=== PATIENT | female | born 1990 | race Caucasian/White ===

== ENCOUNTER 2022-11-12 08:12 | Outpatient (OUT) | payer MEDICAID, SELFPAY ==
--- NOTE | 2022-11-12 | VEIN_ITS ---
[address] [address] Patient Name: AGUILA NIELSEN MRN: [id number] date: 1990 Sex: F Assigned Patient Location: Current Patient Location: Accession/Order Number: [id number] Exam Date: 11/12/2022 07:55 Report Date: 11/12/2022 09:19 At the request of: ANDREW TURNER Procedure: VC Endovenous Ablation 1VeinRT EXAMINATION: VC Endovenous Ablation 1VeinRT HISTORY: Pain due to varicose veins of bilateral legs I83.813 The risks and benefits of the procedure had been previously discussed, and were rediscussed at length. Informed written consent was obtained. Rajani Castellon RN and Perla Lim RDMS assisted. Time out procedure was performed. The right lower extremity was prepared and draped in the usual sterile fashion to allow knee flexion in the sterile field. Duplex ultrasound probe was draped in a sterile cover, sterile transmission gel was used. Venous mapping was performed with the areas of dilation and large tributaries marked. The total length was 61 cm from the entry 3 cm above the medial malleolus to 3 cm below the saphenofemoral junction. The diameter of the greater saphenous vein ranged from 15 mm. A 30 gauge needle and 1% buffered lidocaine was used to anesthetize the entry site. A 4 mm incision was made with a scalpel and the saphenous vein was entered percutaneously under direct ultrasound guidance with a micropuncture set, a single stick was successful in gaining access. A micro-guide wire was inserted and the needle removed. A micro-set including a dilator was inserted over the microwire and the needle and dilator were removed. A guide wire was inserted through the micro-set and guided through the saphenous vein to the saphenofemoral junction. The dilator was removed and an introducer sheath was inserted over the wire until the end of the sheath entered the saphenofemoral junction. The dilator and wire were removed and the 600 micron fiber was introduced and placed and positioned so that it extended beyond the sheath and was 3 cm distal to the saphenofemoral femoral junction. Final position of the fiber was determined by ultrasound guidance and duplex imaging. Tumescent anesthetic was delivered by ultrasound guidance. 400 cc of fluid was delivered along the entire course of the saphenous vein. The solution consisted of 1000 cc of normal saline with 40 mL of 1% lidocaine and 20 mL of sodium bicarbonate. A final positioning check was made. The energy source was turned on by means of the foot pedal and the fiber and sheath were withdrawn. The total number of Joules delivered was 2960. The laser was active for 370seconds under continuous pulse, average laser use of 8 J. Laser start time 8:47 AM, 11/12/2022. Laser stop time 8:53 AM, 11/12/2022. A duplex ultrasound revealed compressibility and flow at the saphenofemoral junction immediately after the procedure. Hemostasis at the access site was achieved. The skin incision of the saphenous vein was closed with a 4 x 4. A compression stocking was applied. Postop instructions were given. A follow up appointment was recommended and scheduled. The patient tolerated the procedure well. Electronically authenticated by: GARETH LINO Date: 11/12/2022 09:19
== END 2022-11-12 08:13 ==
LOC: VC 08:12
PROVIDERS: PCP Radiology Diagnostic Radiology; Visit Provider Radiology Diagnostic Radiology
DX: I83.813 Varicose veins of bilateral lower extremities with pain (principal)
CPT/HCPCS: 36478

== ENCOUNTER 2022-11-18 07:53 | Outpatient (OUT) | payer MEDICAID, SELFPAY ==
--- NOTE | 2022-11-18 08:00 | VEIN_ITS ---
Patient: AGUILA NIELSEN Exam Date: 11/18/2022 : 1990 Gender:F Ordering : DR ANDREW TURNER M.D. Admission #: [id number] Family : Order #: [id number] CLICK HERE TO VIEW EXAM RADIOLOGY REPORT PROCEDURE: VC FACILITY EST LMTD VEIN CENTER - OFFICE VISIT FOLLOW UP COMPARISON: None. PROGRESS NOTES: The patient reports improvement in right leg symptoms. There has been interval reduction in varicosities. The patient has followed our recommendations to walk 20-30 minutes once or twice per day since the procedure. Physical exam demonstrates areas of mild bruising and slight decrease in varicosities of the right leg. Persistent varicosities are identified along the legs bilaterally. Review of the ultrasound performed the same day demonstrates occlusive thrombus extending throughout the treated vein, see separate report, consistent with a successful ablation. No thrombus extending into or beyond the saphenofemoral junction. The patient expressed a desire to proceed with treatment of remaining incompetent veins. The patient was informed that treatment was a process and would require several procedures/sessions. IMPRESSION: 1. Successful ablation of the right great saphenous vein 2. Persistent incompetent superficial veins and bilateral lower extremity symptoms PLAN: Endovenous laser ablation of the left great saphenous vein be performed next. Nurse notes, history and physical were reviewed and confirmed, see attached forms. The nurse was present throughout the physical exam and consultation Dictated by: Claude Rodriguez M.D. on 11/18/2022 at 12:47 Approved by: Claude Rodriguez M.D. on 11/18/2022 at 12:49
--- NOTE | 2022-11-18 08:00 | VEIN_ITS ---
Patient: AGUILA NIELSEN Exam Date: 11/18/2022 : 1990 Gender:F Ordering : DR ANDREW TURNER M.D. Admission #: [id number] Family : Order #: [id number] CLICK HERE TO VIEW EXAM RADIOLOGY REPORT PROCEDURE: VC EXT VENOUS RT LMTD COMPARISON: None. INDICATIONS: Phlebitis of superficial veins of rt lower extremity I80. TECHNIQUE: Lower extremity cisneros scale and Duplex Doppler evaluation of the deep venous system from the inguinal ligament through the calf veins. FINDINGS: REGION: Right lower extremity. THROMBI: Negative for DVT. Heat induced thrombus visualized 1.7 cm from the SFJ. The heat induced thrombus extends from groin to distal calf. COMPRESSIBILITY: Non-compressible segments. FLOW: Areas of no flow. OTHER: CONCLUSION: 1. Successful post ablation occlusion right great saphenous vein. Dictated by: Claude Rodriguez M.D. on 11/18/2022 at 12:40 Approved by: Claude Rodriguez M.D. on 11/18/2022 at 12:47
== END 2022-11-18 07:54 ==
LOC: VC 07:54
PROVIDERS: PCP Radiology Diagnostic Radiology; Visit Provider Radiology Diagnostic Radiology
DX: I80.01 Phlebitis and thrombophlebitis of superficial vessels of right lower extremity (principal)
CPT/HCPCS: 93971; G0463

== ENCOUNTER 2022-11-25 07:46 | Outpatient (OUT) | payer MEDICAID, SELFPAY ==
--- NOTE | 2022-11-25 08:14 | VEIN_ITS ---
[address] [address] Patient Name: AGUILA NIELSEN MRN: [id number] date: 1990 Sex: F Assigned Patient Location: Current Patient Location: Accession/Order Number: [id number] Exam Date: 11/25/2022 07:50 Report Date: 11/25/2022 08:52 At the request of: ANDREW TURNER Procedure: VC Endovenous Ablation 1VeinLT EXAMINATION: VC Endovenous Ablation 1VeinLT HISTORY: Painful varicose veins I83.813 COMPARISON: No relevant comparison available. TECHNIQUE: The risks and benefits of the procedure had been previously discussed, and were rediscussed at length. Informed written consent was obtained. Kathleen Ayala and Kevon Diaz assisted. Time out procedure was performed. The left lower extremity was prepared and draped in the usual sterile fashion to allow knee flexion in the sterile field. Duplex ultrasound probe was draped in a sterile cover, sterile transmission gel was used. Venous mapping was performed with the areas of dilation and large tributaries marked. The total length was 62 cm from the entry 4 cm above the medial malleolus to 3 cm below the saphenofemoral junction. The diameter of the greater saphenous vein ranged from 5-14 mm. A 30 gauge needle and 1% buffered lidocaine was used to anesthetize the entry site. A 4 mm incision was made with a scalpel and the saphenous vein was entered percutaneously under direct ultrasound guidance with a micropuncture set, a single stick was successful in gaining access. A micro-guide wire was inserted and the needle removed. A micro-set including a dilator was inserted over the microwire and the needle and dilator were removed. A .018 guide wire was inserted through the micro-set and threaded through the saphenous vein to the saphenofemoral junction. The dilator was removed and an introducer sheath was inserted over the wire until the end of the sheath entered the saphenofemoral junction. The dilator and wire were removed and the 600 micron fiber was introduced and placed and positioned so that it extended beyond the sheath and was 3 cm peripheral to the saphenofemoral femoral junction. Final position of the fiber was determined by ultrasound guidance and duplex imaging. Tumescent anesthetic was delivered by ultrasound guidance. 400 cc of fluid was delivered along the entire course of the saphenous vein. The solution consisted of 1000 cc of normal saline with 40 mL of 1% lidocaine and 20 mL of sodium bicarbonate. A final positioning check was made. The energy source was turned on by means of the foot pedal and the fiber and sheath were withdrawn. The total number of Joules delivered was 3042. The laser was active for 380seconds under continuous pulse, average laser use of 8 J. Laser start time 8:39 am 11/25/22.. Laser stop time 8:45AM 11/25/22 . A duplex ultrasound revealed compressibility and flow at the saphenofemoral junction immediately after the procedure. Hemostasis at the access site was achieved. The skin incision of the saphenous vein was closed with a 4 x 4. A compression stocking was applied. Postop instructions were given. A follow up appointment was recommended and scheduled. The patient tolerated the procedure well and was discharged in good condition . IMPRESSION: Technically successful endovenous laser ablation of the left great saphenous vein Electronically authenticated by: ANDREW TURNER Date: 11/25/2022 08:52
[2022-11-25] MEDS: 0.9 % SODIUM CHLORIDE 500 ML, LIDOCAINE HCL 20 ML, SODIUM BICARBONATE 10 MEQ INJ (08:21)
[2022-11-25] MEDS: LIDOCAINE HCL 10 ML, SODIUM BICARBONATE 1 MEQ INJ (08:26)
== END 2022-11-25 07:47 | disposition home or self-care (01) ==
LOC: VC 07:46
PROVIDERS: PCP Radiology Diagnostic Radiology; Visit Provider Radiology Diagnostic Radiology
DX: I83.813 Varicose veins of bilateral lower extremities with pain (principal)
CPT/HCPCS: 36478

== ENCOUNTER 2022-12-03 08:10 | Outpatient (OUT) | payer MEDICAID, SELFPAY ==
--- NOTE | 2022-12-03 | VEIN_ITS ---
Patient: AGUILA NIELSEN Exam Date: 12/03/2022 : 1990 Gender:F Ordering : DR ANDREW TURNER M.D. Admission #: [id number] Family : Order #: [id number] CLICK HERE TO VIEW EXAM RADIOLOGY REPORT PROCEDURE: FACILITY EST LMTD VEIN CENTER - OFFICE VISIT FOLLOW UP COMPARISON: [facility] EST LMTD, 11/18/2022. PROGRESS NOTES: The patient reports slight improvement in leg symptoms. There has been interval reduction in varicosities. The patient has followed our recommendations to walk 20-30 minutes once or twice per day since the procedure. Physical exam demonstrates slight decrease in varicosities of the left leg. Persistent varicosities are identified along the legs bilaterally. Review of the ultrasound performed the same day demonstrates occlusive thrombus extending throughout the treated vein, see separate report, consistent with a successful ablation. No thrombus extending into or beyond the saphenofemoral junction. The patient expressed a desire to proceed with treatment of remaining incompetent varicosities. The patient was informed that treatment was a process and would require several procedures/sessions. IMPRESSION: 1. Successful ablation of the left saphenous vein 2. Persistent incompetent varicose veins and bilateral lower extremity symptoms PLAN: Endovenous laser ablation of right small saphenous vein. Nurse notes, history and physical were reviewed and confirmed, see attached forms. The nurse was present throughout the physical exam and consultation Dictated by: Claude Rodriguez M.D. on 12/03/2022 at 09:10 Approved by: Claude Rodriguez M.D. on 12/03/2022 at 09:14
--- NOTE | 2022-12-03 | VEIN_ITS ---
Patient: AGUILA NIELSEN Exam Date: 12/03/2022 : 1990 Gender:F Ordering : DR ANDREW TURNER M.D. Admission #: [id number] Family : Order #: [id number] CLICK HERE TO VIEW EXAM RADIOLOGY REPORT PROCEDURE: VC EXT VENOUS LT LIMITED COMPARISON: None. INDICATIONS: Phlebitis of superficial vein of the lt lower extremity I80.02 TECHNIQUE: Lower extremity cisneros scale and Duplex Doppler evaluation of the deep venous system from the inguinal ligament through the calf veins. FINDINGS: REGION: Left lower extremity. THROMBI: Negative for DVT. Heat induced thrombus in left GSV 1.3 cm from SFJ and extends to distal lower leg. Associated turn operator in distal lower leg thrombosed 8.3 mm from PTV. COMPRESSIBILITY: Non-compressible segments. FLOW: Areas of no flow. OTHER: Multiple large varicosities remain. CONCLUSION: 1. Successful post ablation occlusion of left great saphenous vein. Dictated by: Claude Rodriguez M.D. on 12/03/2022 at 09:08 Approved by: Claude Rodriguez M.D. on 12/03/2022 at 09:10
== END 2022-12-03 08:11 | disposition home or self-care (01) ==
LOC: VC 08:10
PROVIDERS: PCP Radiology Diagnostic Radiology; Visit Provider Radiology Diagnostic Radiology
DX: I80.02 Phlebitis and thrombophlebitis of superficial vessels of left lower extremity (principal); I83.813 Varicose veins of bilateral lower extremities with pain
CPT/HCPCS: 93971; G0463

== ENCOUNTER 2022-12-16 09:51 | Outpatient (OUT) | payer MEDICAID, SELFPAY ==
--- NOTE | 2022-12-16 09:51 | VEIN_ITS ---
[address] [address] Patient Name: AGUILA NIELSEN MRN: [id number] date: 1990 Sex: F Assigned Patient Location: Current Patient Location: Accession/Order Number: [id number] Exam Date: 12/16/2022 09:55 Report Date: 12/16/2022 11:44 At the request of: ANDREW TURNER Procedure: VC Endovenous Ablation 1VeinRT EXAMINATION: VC Endovenous Ablation 1VeinRT HISTORY: I83.813 Pain due to varicose veins of bilateral legs COMPARISON: No relevant comparison available. TECHNIQUE: The risks and benefits of the procedure had been previously discussed, and were rediscussed at length. Informed written consent was obtained. Kathleen Ayala and Kevon Diaz assisted. Time out procedure was performed. The right lower extremity was prepared and draped in the usual sterile fashion with the patient in prone position. Duplex ultrasound probe was draped in a sterile cover, sterile transmission gel was used. Venous mapping was performed with the areas of dilation and large tributaries marked. The total length was 23 cm from the entry mid to distal calf 2 where the vein begins to dilate deep into the muscle fascia, this was a thigh extension. The diameter of the small saphenous vein ranged from 4-7 mm. A 30 gauge needle and 1% buffered lidocaine was used to anesthetize the entry site. A 4 mm incision was made with a scalpel and the saphenous vein was entered percutaneously under direct ultrasound guidance with a micropuncture set, a single stick was successful in gaining access. A micro-guide wire was inserted and the needle removed. A micro-set including a dilator was inserted over the microwire and the needle and dilator were removed. A 0.018 guide wire was inserted through the micro-set and threaded through the saphenous vein to the saphenofemoral junction. The dilator was removed and an introducer sheath was inserted over the wire until the end of the sheath entered the saphenofemoral junction. The dilator and wire were removed and the 600 micron fiber was introduced and placed and positioned so that it extended beyond the sheath and was 3 cm peripheral to the saphenofemoral femoral junction. Final position of the fiber was determined by ultrasound guidance and duplex imaging. Rashicent anesthetic was delivered by ultrasound guidance. 200 cc of fluid was delivered along the entire course of the saphenous vein. The solution consisted of 1000 cc of normal saline with 40 mL of 1% lidocaine and 20 mL of sodium bicarbonate. A final positioning check was made. The energy source was turned on by means of the foot pedal and the fiber and sheath were withdrawn. The total number of Joules delivered was 1081. The laser was active for 135 seconds under continuous pulse, average laser use of 8 J. Laser start time 10:32 AM 12/16/2022 . Laser stop time 10:34 AM 12/16/2022 . A duplex ultrasound revealed compressibility and flow at the saphenofemoral junction immediately after the procedure. Hemostasis at the access site was achieved. The skin incision of the saphenous vein was closed with a 4 x 4. A compression stocking was applied. Postop instructions were given. A follow up appointment was recommended and scheduled. The patient tolerated the procedure well and was discharged in good condition . VEIN/VC Endovenous Ablation 1VeinRT IMPRESSION: Technically successful endovenous laser ablation right small saphenous vein Electronically authenticated by: ANDREW TURNER Date: 12/16/2022 11:44
[2022-12-16] MEDS: 0.9 % SODIUM CHLORIDE 500 ML, LIDOCAINE HCL 20 ML, SODIUM BICARBONATE 10 MEQ INJ (10:13)
[2022-12-16] MEDS: LIDOCAINE HCL 10 ML, SODIUM BICARBONATE 1 MEQ INJ (14:43)
== END 2022-12-16 09:52 | disposition home or self-care (01) ==
LOC: VC 09:51
PROVIDERS: PCP Radiology Diagnostic Radiology; Visit Provider Radiology Diagnostic Radiology
DX: I83.813 Varicose veins of bilateral lower extremities with pain (principal)
CPT/HCPCS: 36478

== ENCOUNTER 2022-12-29 09:50 | Outpatient (OUT) | payer MEDICAID, SELFPAY ==
--- NOTE | 2022-12-29 09:51 | VEIN_ITS ---
Patient: AGUILA NIELSEN Exam Date: 12/29/2022 : 1990 Gender:F Ordering : DR ANDREW TURNER M.D. Admission #: [id number] Family : Order #: [id number] CLICK HERE TO VIEW EXAM RADIOLOGY REPORT PROCEDURE: [facility] EST L[facility] VEIN CENTER - OFFICE VISIT FOLLOW UP COMPARISON: [facility], 12/03/2022. PROGRESS NOTES: The patient reports improvement in leg symptoms. There has been interval reduction in varicosities. The patient has followed our recommendations to walk 20-30 minutes once or twice per day since the procedure. Physical exam demonstrates decrease in varicosities of the leg. Persistent varicosities are identified along the legs bilaterally. Review of the ultrasound performed the same day demonstrates occlusive thrombus extending throughout the treated vein(s), see separate report, consistent with a successful ablation. No thrombus extending into or beyond the saphenofemoral junction. The patient expressed a desire to proceed with treatment of remaining incompetent varicosities. The patient was informed that treatment was a process and would require several procedures/sessions. VEIN/[facility] EST LMTD IMPRESSION: 1. Successful ablation of the right small saphenous vein(s). 2. Persistent incompetent varicose veins and bilateral lower extremity symptoms. PLAN: Endovenous laser ablation of the left small saphenous vein. Nurse notes, history and physical were reviewed and confirmed, see attached forms. The nurse was present throughout the physical exam and consultation Dictated by: Claude Rodriguez M.D. on 12/29/2022 at 13:25 Approved by: Claude Rodriguez M.D. on 12/29/2022 at 13:28
--- NOTE | 2022-12-29 09:51 | VEIN_ITS ---
Patient: AGUILA NIELSEN Exam Date: 12/29/2022 : 1990 Gender:F Ordering : DR ANDREW TURNER M.D. Admission #: [id number] Family : Order #: [id number] CLICK HERE TO VIEW EXAM RADIOLOGY REPORT PROCEDURE: VC EXT VENOUS RT LMTD COMPARISON: VC EXT VENOUS RT LMTD, 11/18/2022. INDICATIONS: I80.01 Phlebitis of superficial veins of rt lower extremity TECHNIQUE: Lower extremity cisneros scale and Duplex Doppler evaluation of the deep venous system from the inguinal ligament through the calf veins. FINDINGS: REGION: Right lower extremity. THROMBI: Negative for DVT. Heat induced thrombus in right SSV from distal thigh extention to distal lower leg. COMPRESSIBILITY: Non-compressible segments. FLOW: Areas of no flow. OTHER: Varicose veins remain. CONCLUSION: 1. Successful post ablation occlusion of right small saphenous vein. Dictated by: Claude Rodriguez M.D. on 12/29/2022 at 13:23 Approved by: Claude Rodriguez M.D. on 12/29/2022 at 13:25
== END 2022-12-29 09:51 | disposition home or self-care (01) ==
LOC: VC 09:50
PROVIDERS: PCP Radiology Diagnostic Radiology; Visit Provider Radiology Diagnostic Radiology
DX: I80.01 Phlebitis and thrombophlebitis of superficial vessels of right lower extremity (principal)
CPT/HCPCS: 93971; G0463

== ENCOUNTER 2023-01-12 09:40 | Outpatient (OUT) | payer MEDICAID, SELFPAY ==
--- NOTE | 2023-01-12 | VEIN_ITS ---
[address] [address] Patient Name: AGUILA NIELSEN MRN: [id number] date: 1990 Sex: F Assigned Patient Location: Current Patient Location: Accession/Order Number: [id number] Exam Date: 01/12/2023 09:50 Report Date: 01/12/2023 11:03 At the request of: ANDREW TURNER Procedure: VC Endovenous Ablation 1VeinLT EXAMINATION: VC Endovenous Ablation 1VeinLT HISTORY: Pain due to varicose veins of bilateral legs I83.813 The risks and benefits of the procedure had been previously discussed, and were rediscussed at length. Informed written consent was obtained. Kevon Diaz RN and Perla Lim RDMS assisted. Time out procedure was performed. The left lower extremity was prepared and draped in the usual sterile fashion to allow knee flexion in the sterile field. Duplex ultrasound probe was draped in a sterile cover, sterile transmission gel was used. Venous mapping was performed with the areas of dilation and large tributaries marked. The total length was 29 cm from the entry 3 cm above the ankle to 3 cm below the saphenofemoral popliteal junction. The diameter of the small saphenous vein ranged from 5.1 mm. A 30 gauge needle and 1% buffered lidocaine was used to anesthetize the entry site. A 4 mm incision was made with a scalpel and the saphenous vein was entered percutaneously under direct ultrasound guidance with a micropuncture set, a single stick was successful in gaining access. A micro-guide wire was inserted and the needle removed. A micro-set including a dilator was inserted over the microwire and the needle and dilator were removed. A guide wire was inserted through the micro-set and guided through the saphenous vein to the saphenofemoral junction. The dilator was removed and an introducer sheath was inserted over the wire until the end of the sheath entered the saphenofemoral junction. The dilator and wire were removed and the 600 micron fiber was introduced and placed and positioned so that it extended beyond the sheath and was 3 cm distal to the saphenofemoral or saphenopopliteal junction. Final position of the fiber was determined by ultrasound guidance and duplex imaging. Tumescent anesthetic was delivered by ultrasound guidance. 150 cc of fluid was delivered along the entire course of the saphenous vein. The solution consisted of 1000 cc of normal saline with 40 mL of 1% lidocaine and 20 mL of sodium bicarbonate. A final positioning check was made. The energy source was turned on by means of the foot pedal and the fiber and sheath were withdrawn. The total number of Joules delivered was 1583. The laser was active for 198 seconds under continuous pulse, average laser use of 8 J. Laser start time 10:24 AM, 01/12/2023. Laser stop time 10:27 AM, 01/12/2023. A duplex ultrasound revealed compressibility and flow at the saphenofemoral junction immediately after the procedure. Hemostasis at the access site was achieved. The skin incision of the saphenous vein was closed with a 4 x 4. A compression stocking was applied. Postop instructions were given. A follow up appointment was recommended and scheduled. The patient tolerated the procedure well. Electronically authenticated by: GARETH LINO Date: 01/12/2023 11:03
[2023-01-12] MEDS: 0.9 % SODIUM CHLORIDE 500 ML, LIDOCAINE HCL 20 ML, SODIUM BICARBONATE 10 MEQ INJ (10:08)
== END 2023-01-12 09:41 | disposition home or self-care (01) ==
LOC: VC 09:41
PROVIDERS: PCP Radiology Diagnostic Radiology; Visit Provider Radiology Diagnostic Radiology
DX: I83.813 Varicose veins of bilateral lower extremities with pain (principal)
CPT/HCPCS: 36478

== ENCOUNTER 2023-01-16 09:46 | Outpatient (OUT) | payer MEDICAID, SELFPAY ==
--- NOTE | 2023-01-16 09:48 | VEIN_ITS ---
Patient: AGUILA NIELSEN Exam Date: 01/16/2023 : 1990 Gender:F Ordering : DR ARTIE LOCK M.D. Admission #: [id number] Family : Order #: [id number] CLICK HERE TO VIEW EXAM RADIOLOGY REPORT PROCEDURE: FACILITY EST LMTD VEIN CENTER - OFFICE VISIT FOLLOW UP COMPARISON: [facility] EST LMTD, 12/29/2022. [facility] EST LMTD, 12/03/2022. PROGRESS NOTES: The patient reports the no significant problems following intravenous laser ablation of the left small saphenous vein. The patient did not require oral analgesics for the patient has worn her compression stockings. The patient has followed our recommendations to walk 20-30 minutes once or twice per day since the procedure. Physical exam demonstrates no bruising. No erythema or warmth. No evidence of cellulitis, thrombophlebitis or active ulceration Review of the ultrasound performed the same day demonstrates occlusive thrombus extending throughout the treated small saphenous vein which was a thigh extension. No deep vein thrombus. The patient expressed a desire to proceed with treatment of incompetent varicose veins with micro foam chemical ablation. VEIN/[facility] EST LMTD IMPRESSION: 1. Successful ablation of the left small saphenous vein 2. Persistent bilateral incompetent varicose veins PLAN: Micro foam chemical ablation of the left leg Nurse notes, history and physical were reviewed and confirmed, see attached forms. The nurse was present throughout the physical exam and consultation Dictated by: Artie Lock MD on 01/16/2023 at 14:04 Approved by: Artie Lock MD on 01/16/2023 at 14:07
--- NOTE | 2023-01-16 09:49 | VEIN_ITS ---
Patient: AGUILA NIELSEN Exam Date: 01/16/2023 : 1990 Gender:F Ordering : DR ARTIE LOCK M.D. Admission #: [id number] Family : Order #: [id number] CLICK HERE TO VIEW EXAM RADIOLOGY REPORT PROCEDURE: VC EXT VENOUS LT LIMITED COMPARISON: VC EXT VENOUS LT LIMITED, 12/03/2022. INDICATIONS: I83.813 Pain due to varicose veins of bilateral leg veins TECHNIQUE: Lower extremity cisneros scale and Duplex Doppler evaluation of the deep venous system from the inguinal ligament through the calf veins. FINDINGS: REGION: Left lower extremity. THROMBI: Negative for DVT. Heat induced thrombus visualized arising at distal thigh and extending through distal calf. COMPRESSIBILITY: Non-compressible segments. FLOW: Absent flow corresponding to thrombus CONCLUSION: Post ablation occlusion of the left small saphenous vein with no deep vein thrombus Dictated by: Artie Lock MD on 01/16/2023 at 10:22 Approved by: Artie Lock MD on 01/16/2023 at 10:23
== END 2023-01-16 09:47 | disposition home or self-care (01) ==
LOC: VC 09:46
PROVIDERS: PCP Radiology Diagnostic Radiology; Visit Provider Radiology Diagnostic Radiology
DX: I80.02 Phlebitis and thrombophlebitis of superficial vessels of left lower extremity (principal)
CPT/HCPCS: 93971; G0463

== ENCOUNTER 2023-01-27 09:42 | Outpatient (OUT) | payer MEDICAID, SELFPAY ==
--- NOTE | 2023-01-27 09:45 | VEIN_ITS ---
[address] [address] Patient Name: AGUILA NIELSEN MRN: [id number] date: 1990 Sex: F Assigned Patient Location: Current Patient Location: Accession/Order Number: [id number] Exam Date: 01/27/2023 09:45 Report Date: 01/27/2023 11:52 At the request of: ANDREW TURNER Procedure: VC INJ Foam Sclerosant WUS METAL BUFFER PROCEDURE: VC INJ Foam Sclerosant WUS METAL BUFFER HISTORY: Pain due to varicose veins of bilateral legs I83.813 Pre-operative Diagnosis: CEAP class C3 venous insufficiency with pain, tenderness, edema and incompetent branch saphenous vein(s), chronic venous insufficiency right leg secondary to venous incompetence Post-operative Diagnosis: CEAP class C3 venous insufficiency with pain, tenderness, edema and incompetent branch saphenous vein(s), chronic venous insufficiency right leg secondary to venous incompetence Procedure Performed: 1. Ultrasound-guided microfoam chemical ablation with Varithenaregistered 2. Intraoperative ultrasound guidance Physician: Claude Rodriguez M.D. Anesthesia: None Indications for Procedure: 32 year old female. Symptoms including lower extremity swelling, dilated bulging veins, cramping for many years despite conservative medical therapy including medical compression stockings, exercise and analgesics. Prior procedures include endovenous laser ablation. Multiple incompetent varicosities of the right leg. Duplex scan showed reflux and enlarged diameters up to 5 mm. The patient underwent informed consent including management options where the complications of infection, bleeding, pain, and skin injury were discussed. Particular attention was spent discussing thrombus extension and deep vein thrombosis as well as the possibility of pulmonary embolus and treatment with oral or injectable blood thinners. Procedure: The patient walked to the procedure room. All applicable staff donned appropriate apparel. A procedure timeout was performed to confirm correct patient, correct extremity, correct procedure, and correct room set-up including presence of all applicable supplies, devices, and drugs. A duplex ultrasound, performed by myself confirmed the location and incompetence of branch saphenous varicosities and their course was marked on the skin together with the dilated tributaries. The extent of treatment of the vein and the associated varicosities was determined through ultrasound mapping. The skin was prepped and then punctured with a butterfly needle and advanced under ultrasound guidance. The Varithenaregistered canister was activated and the canister was primed and purged as required in the instructions for use. Varithenaregistered was drawn into a sterile syringe. Varithenaregistered was slowly administered at 0.5-1.0 cc/second with close observation by ultrasound of its course in the vessels. Total volume utilized was: 15 mL (5 mL into a 4 mm varicosity of the distal anterior lower leg; 5 mL into a 5 mm varicosity of the mid medial posterior lower leg; 5 mL into a 5 mm varicosity of the mid lateral lower leg). Following administration of Varithenaregistered the leg was elevated and the patient was asked to repeatedly dorsiflex the ankle to limit flow of Varithenaregistered into perforating veins. Once appropriate spasm had been confirmed in the treated veins, the vascular catheter was removed from the leg and light pressure was applied over the puncture site for hemostasis. The common femoral and deep superficial veins were then evaluated for flow and compressibility prior to dressing placement. The lower extremity was kept elevated at 45 degrees above the horizontal and cording material was applied over the saphenous segments and tributaries to allow for eccentric compression over the target vessels including the targeted saphenous vein(s). A multilayer dressing was applied consisting of foam pads, coban and thigh-high 20-30 mm Hg compression elastic support hose were placed on the patient. The leg was lowered only after compression had been applied and the patient was immediately ambulatory. The patient ambulated 10 minutes under supervision and was without apparent concerns at time of release. Post-care instructions include advising patient to keep post-treatment bandages in place and dry for 48 hours, avoid extended periods of inactivity, avoid heavy exercise for one week, wear compression stockings on the treated leg continuously for two weeks, to walk daily for 10 minutes over the next month. The patient was instructed to take an anti-inflammatory medicine as needed and to follow up for color duplex scan of the Saphenous veins, the treated branch saphenous varicosities, the adjacent deep veins, and additional treatment within 7 days. PERSONNEL: Kevon Diaz RN Electronically authenticated by: CLAUDE RODRIGUEZ Date: 01/27/2023 11:52
== END 2023-01-27 09:43 | disposition home or self-care (01) ==
LOC: VC 09:43
PROVIDERS: PCP Radiology Diagnostic Radiology; Visit Provider Radiology Diagnostic Radiology
DX: I83.813 Varicose veins of bilateral lower extremities with pain (principal)
CPT/HCPCS: 36466

== ENCOUNTER 2023-02-03 10:54 | Outpatient (OUT) | payer MEDICAID, SELFPAY ==
--- NOTE | 2023-02-03 | VEIN_ITS ---
Patient: AGUILA NIELSEN Exam Date: 02/03/2023 : 1990 Gender:F Ordering : DR ARTIE LOCK M.D. Admission #: [id number] Family : Order #: [id number] CLICK HERE TO VIEW EXAM RADIOLOGY REPORT PROCEDURE: VC EXT VENOUS RT LMTD COMPARISON: VC EXT VENOUS RT LMTD, 12/29/2022. VC EXT VENOUS RT LMTD, 11/18/2022. INDICATIONS: Phlebitis of superficial veins of rt lower extremity I80.01 TECHNIQUE: Lower extremity cisneros scale and Duplex Doppler evaluation of the deep venous system from the inguinal ligament through the calf veins. FINDINGS: REGION: Right lower extremity. THROMBI: Negative for DVT. Varithena induced thrombus visualized at prox/lat calf, dist/med thigh, and mid/med thigh. COMPRESSIBILITY: Non-compressible segments corresponding to thrombus. FLOW: Absent flow corresponding to thrombus OTHER: Multiple varicose veins remain CONCLUSION: Post ablation occlusion of treated right leg varicose veins with residual varicose veins measuring up to 4.5 mm Dictated by: Artie Lock MD on 02/03/2023 at 11:25 Approved by: Artie Lock MD on 02/03/2023 at 11:26
--- NOTE | 2023-02-03 | VEIN_ITS ---
Patient: AGUILA NIELSEN Exam Date: 02/03/2023 : 1990 Gender:F Ordering : DR ARTIE LOCK M.D. Admission #: [id number] Family : Order #: [id number] CLICK HERE TO VIEW EXAM RADIOLOGY REPORT PROCEDURE: FACILITY EST LMTD VEIN CENTER - OFFICE VISIT FOLLOW UP COMPARISON: FACILITY EST LMTD, 01/16/2023. FACILITY EST LMTD, 12/29/2022. PROGRESS NOTES: The patient no significant problems following micro foam chemical ablation of the right leg. The patient has worn her compression stocking. The patient did not require oral analgesics. There has been interval reduction in varicosities. The patient has followed our recommendations to walk 20-30 minutes once or twice per day since the procedure. Physical exam demonstrates a 10 cm bruise in the right lateral thigh related to the patient being kicked by 1 of her show horses. Multiple thrombosed varicose veins are observed with mild hemosiderin staining. The patient was cautioned to avoid some by using a mechanical sunblock or clothing to avoid permanent hemosiderin staining. Multiple residual incompetent patent varicose veins are observed most significant along the right anterior thigh knee and lower leg. Numerous patent left leg varicose veins are observed. Review of the ultrasound performed the same day demonstrates occlusive thrombus extending throughout the treated right leg varicose veins with residual incompetent varicose veins measuring up to 4.5 mm in diameter. The patient expressed a desire to proceed with treatment of incompetent left leg varicose veins. VEIN/ Facility EST LMTD IMPRESSION: 1. Successful micro foam chemical ablation of the right leg varicose veins. 2. Persistent bilateral incompetent leg varicose vein. PLAN: Micro foam chemical ablation left leg Nurse notes, history and physical were reviewed and confirmed, see attached forms. The nurse was present throughout the physical exam and consultation Dictated by: Artie Lock MD on 02/03/2023 at 11:57 Approved by: Artie Lock MD on 02/03/2023 at 13:00
== END 2023-02-03 10:55 | disposition home or self-care (01) ==
LOC: VC 10:54
PROVIDERS: PCP Radiology Diagnostic Radiology; Visit Provider Radiology Diagnostic Radiology
DX: I80.01 Phlebitis and thrombophlebitis of superficial vessels of right lower extremity (principal)
CPT/HCPCS: 93971; G0463

== ENCOUNTER 2023-02-17 13:49 | Outpatient (OUT) | payer MEDICAID, SELFPAY ==
--- NOTE | 2023-02-17 | VEIN_ITS ---
The [address] [address] Patient Name: AGUILA NIELSEN MRN: [id number] date: 1990 Sex: F Assigned Patient Location: Current Patient Location: Accession/Order Number: [id number] Exam Date: 02/17/2023 14:25 Report Date: 02/17/2023 15:40 At the request of: ANDREW TURNER Procedure: VC INJ Foam Sclerosant WUS VACUUM TECHNICIAN PROCEDURE: VC INJ Foam Sclerosant WUS VACUUM TECHNICIAN HISTORY: Pain due to varicose veins of bilateral legs I83.813 Pre-operative Diagnosis: CEAP class C3 venous insufficiency with pain, tenderness, edema and incompetent branch saphenous vein(s), chronic venous insufficiency left leg secondary to venous incompetence Post-operative Diagnosis: CEAP class C3 venous insufficiency with pain, tenderness, edema and incompetent branch saphenous vein(s), chronic venous insufficiency left leg secondary to venous incompetence Procedure Performed: 1. Ultrasound-guided microfoam chemical ablation with Varithenaregistered 2. Intraoperative ultrasound guidance Physician: Claude Rodriguez M.D. Anesthesia: None Indications for Procedure: 32 year old female. Symptoms including bilateral lower extremity bulging dilated discoid veins, leg heaviness, throbbing, itching for many years despite conservative medical therapy including medical compression stockings, exercise and analgesics. Prior procedures include endovenous laser ablation and microfoam chemical ablation. Multiple incompetent varicosities of the left leg. Duplex scan showed reflux and enlarged diameters up to 6 mm. The patient underwent informed consent including management options where the complications of infection, bleeding, pain, and skin injury were discussed. Particular attention was spent discussing thrombus extension and deep vein thrombosis as well as the possibility of pulmonary embolus and treatment with oral or injectable blood thinners. Procedure: The patient walked to the procedure room. All applicable staff donned appropriate apparel. A procedure timeout was performed to confirm correct patient, correct extremity, correct procedure, and correct room set-up including presence of all applicable supplies, devices, and drugs. A duplex ultrasound, performed by myself confirmed the location and incompetence of branch saphenous varicosities and their course was marked on the skin together with the dilated tributaries. The extent of treatment of the vein and the associated varicosities was determined through ultrasound mapping. The skin was prepped and then punctured with a butterfly needle and advanced under ultrasound guidance. The Varithenaregistered canister was activated and the canister was primed and purged as required in the instructions for use. Varithenaregistered was drawn into a sterile syringe. Varithenaregistered was slowly administered at 0.5-1.0 cc/second with close observation by ultrasound of its course in the vessels. Total volume utilized was: 15 mL (7 mL intravenous 5 mm varicosity of the distal anterior left lower leg; 8 mL into a 6 mm varicosity of the proximal medial lower leg). Following administration of Varithenaregistered the leg was elevated and the patient was asked to repeatedly dorsiflex the ankle to limit flow of Varithenaregistered into perforating veins. Once appropriate spasm had been confirmed in the treated veins, the vascular catheter was removed from the leg and light pressure was applied over the puncture site for hemostasis. The common femoral and deep superficial veins were then evaluated for flow and compressibility prior to dressing placement. The lower extremity was kept elevated at 45 degrees above the horizontal and cording material was applied over the saphenous segments and tributaries to allow for eccentric compression over the target vessels including the targeted saphenous vein(s). A multilayer dressing was applied consisting of foam pads, coban and thigh-high 20-30 mm Hg compression elastic support hose were placed on the patient. The leg was lowered only after compression had been applied and the patient was immediately ambulatory. The patient ambulated 10 minutes under supervision and was without apparent concerns at time of release. Post-care instructions include advising patient to keep post-treatment bandages in place and dry for 48 hours, avoid extended periods of inactivity, avoid heavy exercise for one week, wear compression stockings on the treated leg continuously for two weeks, to walk daily for 10 minutes over the next month. The patient was instructed to take an anti-inflammatory medicine as needed and to follow up for color duplex scan of the Saphenous veins, the treated branch saphenous varicosities, the adjacent deep veins, and additional treatment within 7 days. PERSONNEL: Kevon Diaz RN Electronically authenticated by: CLAUDE RODRIGUEZ Date: 02/17/2023 15:40
== END 2023-02-17 13:50 | disposition home or self-care (01) ==
LOC: VC 13:49
PROVIDERS: PCP Radiology Diagnostic Radiology; Visit Provider Radiology Diagnostic Radiology
DX: I83.813 Varicose veins of bilateral lower extremities with pain (principal)
CPT/HCPCS: 36466

== ENCOUNTER 2023-02-24 07:51 | Outpatient (OUT) | payer MEDICAID, SELFPAY ==
--- NOTE | 2023-02-24 | VEIN_ITS ---
Patient: AGUILA NIELSEN Exam Date: 02/24/2023 : 1990 Gender:F Ordering : DR ARTIE LOCK M.D. Admission #: [id number] Family : Order #: [id number] CLICK HERE TO VIEW EXAM RADIOLOGY REPORT PROCEDURE: VC EXT VENOUS LT LIMITED COMPARISON: VC EXT VENOUS LT LIMITED, 01/16/2023. VC EXT VENOUS LT LIMITED, 12/03/2022. INDICATIONS: Phlebitis of superficial veins of lt lower extremity I80.02 TECHNIQUE: Lower extremity cisneros scale and Duplex Doppler evaluation of the deep venous system from the inguinal ligament through the calf veins. FINDINGS: REGION: Left lower extremity. THROMBI: Negative for DVT. Varithena induced thrombus visualized at prox/med calf and distal/med calf. COMPRESSIBILITY: Non-compressible segments. FLOW: Absent flow corresponding to thrombus OTHER: Multiple varicose veins remain. Largest measures 5.9mm with 1.6s reflux. CONCLUSION: Post ablation occlusion of treated left leg varicose veins. Residual incompetent varicose veins measuring 5.9 mm remain Dictated by: Artie Lock MD on 02/24/2023 at 08:13 Approved by: Artie Lock MD on 02/24/2023 at 08:13
--- NOTE | 2023-02-24 | VEIN_ITS ---
Patient: AGUILA NIELSEN Exam Date: 02/24/2023 : 1990 Gender:F Ordering : DR ARTIE LOCK M.D. Admission #: [id number] Family : Order #: [id number] CLICK HERE TO VIEW EXAM RADIOLOGY REPORT PROCEDURE: FACILITY EST LMTD VEIN CENTER - OFFICE VISIT FOLLOW UP COMPARISON: FACILITY EST LMTD, 02/03/2023. FACILITY EST LMTD, 01/16/2023. PROGRESS NOTES: The patient reports improvement in initial presenting symptoms. The patient had no difficulty following micro foam chemical ablation of the left leg. There has been interval reduction in varicosities. The patient has worn her compression stockings. The patient has followed our recommendations to walk 20-30 minutes once or twice per day since the procedure. Physical exam demonstrates decrease in varicosities of the leg. Multiple bilateral patent varicose veins are observed. Multiple thrombosed varicose veins can be palpated. Review of the ultrasound performed the same day demonstrates occlusive thrombus extending throughout the treated left leg incompetent varicose veins. Residual incompetent varicose veins measuring up to 5.9 mm are observed. The patient expressed a desire to proceed with treatment of right leg incompetent varicose veins. VEIN/ Facility EST LMTD IMPRESSION: 1. Successful ablation of left leg incompetent varicose vein 2. Persistent bilateral incompetent varicose veins. PLAN: Micro foam chemical ablation right leg incompetent varicose veins Nurse notes, history and physical were reviewed and confirmed, see attached forms. The nurse was present throughout the physical exam and consultation Dictated by: Artie Lock MD on 02/24/2023 at 08:33 Approved by: Artie Lock MD on 02/24/2023 at 08:45
== END 2023-02-24 07:52 | disposition home or self-care (01) ==
LOC: VC 07:51
PROVIDERS: PCP Radiology Diagnostic Radiology; Visit Provider Radiology Diagnostic Radiology
DX: I80.02 Phlebitis and thrombophlebitis of superficial vessels of left lower extremity (principal)
CPT/HCPCS: 93971; G0463

== ENCOUNTER 2023-03-12 10:51 | Outpatient (OUT) | payer MEDICAID, SELFPAY ==
--- NOTE | 2023-03-12 10:53 | VEIN_ITS ---
[address] [address] Patient Name: AGUILA NIELSEN MRN: [id number] date: 1990 Sex: F Assigned Patient Location: Current Patient Location: Accession/Order Number: [id number] Exam Date: 03/12/2023 11:00 Report Date: 03/12/2023 12:20 At the request of: ANDREW TURNER Procedure: VC INJ Foam Sclerosant WUS ANVILSMITH PROCEDURE: VC INJ Foam Sclerosant WUS ANVILSMITH HISTORY: Pain due to varicose veins of bilateral legs I83.813 Pre-operative Diagnosis: CEAP class C3 venous insufficiency with pain, tenderness, edema and incompetent branch saphenous vein(s), chronic venous insufficiency right leg secondary to venous incompetence Post-operative Diagnosis: CEAP class C3 venous insufficiency with pain, tenderness, edema and incompetent branch saphenous vein(s), chronic venous insufficiency right leg secondary to venous incompetence Procedure Performed: 1. Ultrasound-guided microfoam chemical ablation with Varithenaregistered 2. Intraoperative ultrasound guidance Physician: Cladue Rodriguez M.D. Anesthesia: None Indications for Procedure: 32 year old female. Symptoms including lower extremity swelling, throbbing, dilated bulging veins for many years despite conservative medical therapy including medical compression stockings, exercise and analgesics. Prior procedures include [endovenous laser ablation and Microfoam chemical lobe lesion. Multiple incompetent varicosities of the right leg. Duplex scan showed reflux and enlarged diameters up to 10 mm. The patient underwent informed consent including management options where the complications of infection, bleeding, pain, and skin injury were discussed. Particular attention was spent discussing thrombus extension and deep vein thrombosis as well as the possibility of pulmonary embolus and treatment with oral or injectable blood thinners. Procedure: The patient walked to the procedure room. All applicable staff donned appropriate apparel. A procedure timeout was performed to confirm correct patient, correct extremity, correct procedure, and correct room set-up including presence of all applicable supplies, devices, and drugs. A duplex ultrasound, performed by myself confirmed the location and incompetence of branch saphenous varicosities and their course was marked on the skin together with the dilated tributaries. The extent of treatment of the vein and the associated varicosities was determined through ultrasound mapping. The skin was prepped and then punctured with a butterfly needle and advanced under ultrasound guidance. The Varithenaregistered canister was activated and the canister was primed and purged as required in the instructions for use. Varithenaregistered was drawn into a sterile syringe. Varithenaregistered was slowly administered at 0.5-1.0 cc/second with close observation by ultrasound of its course in the vessels. Total volume utilized was: 15 mL into a 10 mm varicosity of the proximal anterior right lower leg. Following administration of Varithenaregistered the leg was elevated and the patient was asked to repeatedly dorsiflex the ankle to limit flow of Varithenaregistered into perforating veins. Once appropriate spasm had been confirmed in the treated veins, the vascular catheter was removed from the leg and light pressure was applied over the puncture site for hemostasis. The common femoral and deep superficial veins were then evaluated for flow and compressibility prior to dressing placement. The lower extremity was kept elevated at 45 degrees above the horizontal and cording material was applied over the saphenous segments and tributaries to allow for eccentric compression over the target vessels including the targeted saphenous vein(s). A multilayer dressing was applied consisting of foam pads, coban and thigh-high 20-30 mm Hg compression elastic support hose were placed on the patient. The leg was lowered only after compression had been applied and the patient was immediately ambulatory. The patient ambulated 10 minutes under supervision and was without apparent concerns at time of release. Post-care instructions include advising patient to keep post-treatment bandages in place and dry for 48 hours, avoid extended periods of inactivity, avoid heavy exercise for one week, wear compression stockings on the treated leg continuously for two weeks, to walk daily for 10 minutes over the next month. The patient was instructed to take an anti-inflammatory medicine as needed and to follow up for color duplex scan of the Saphenous veins, the treated branch saphenous varicosities, the adjacent deep veins, and additional treatment within 7 days. PERSONNEL: Jorge Luis Garcia RDMS Electronically authenticated by: CLAUDE RODRIGUEZ Date: 03/12/2023 12:20
== END 2023-03-12 10:52 | disposition home or self-care (01) ==
LOC: VC 10:51
PROVIDERS: PCP Radiology Diagnostic Radiology; Visit Provider Radiology Diagnostic Radiology
DX: I83.813 Varicose veins of bilateral lower extremities with pain (principal)
CPT/HCPCS: 36466

== ENCOUNTER 2023-03-18 08:49 | Outpatient (OUT) | payer MEDICAID, SELFPAY ==
--- NOTE | 2023-03-18 08:50 | VEIN_ITS ---
Patient: AGUILA NIELSEN Exam Date: 03/18/2023 : 1990 Gender:F Ordering : DR ARTIE LOCK M.D. Admission #: [id number] Family : Order #: [id number] CLICK HERE TO VIEW EXAM RADIOLOGY REPORT PROCEDURE: FACILITY EST LMTD VEIN CENTER - OFFICE VISIT FOLLOW UP COMPARISON: FACILITY EST LMTD, 02/24/2023. FACILITY EST LMTD, 02/03/2023. PROGRESS NOTES: The patient reports no significant problems following micro foam chemical ablation of right leg incompetent varicose veins. The patient did not require oral analgesics. Patient has worn her compression stocking. The patient has followed our recommendations to walk 20-30 minutes once or twice per day since the procedure. Physical exam demonstrates multiple thrombosed varicose veins in both legs. Residual patent varicose veins are observed. No erythema or warmth to suggest cellulitis or thrombophlebitis. No active ulceration Review of the ultrasound performed the same day demonstrates occlusive thrombus extending throughout the treated right leg varicose veins. Bilateral incompetent varicose veins remain. The patient expressed a desire to proceed with treatment of bilateral incompetent varicose veins with micro foam chemical ablation. VEIN/ Facility EST LMTD IMPRESSION: 1. Successful ablation of treated right leg varicose veins 2. Persistent bilateral incompetent varicose veins. PLAN: Left leg micro foam chemical ablation of incompetent varicose veins Nurse notes, history and physical were reviewed and confirmed, see attached forms. The nurse was present throughout the physical exam and consultation Dictated by: Artie Lokc MD on 03/18/2023 at 09:45 Approved by: Artie Lock MD on 03/18/2023 at 09:47
--- NOTE | 2023-03-18 08:50 | VEIN_ITS ---
Patient: AGUILA NIELSEN Exam Date: 03/18/2023 : 1990 Gender:F Ordering : DR ARTIE LOCK M.D. Admission #: [id number] Family : Order #: [id number] CLICK HERE TO VIEW EXAM RADIOLOGY REPORT PROCEDURE: VC EXT VENOUS RT LMTD COMPARISON: VC EXT VENOUS RT LMTD, 02/03/2023. VC EXT VENOUS RT LMTD, 12/29/2022. INDICATIONS: Phlebitis of superficial veins of rt lower extremity I80.01 TECHNIQUE: Lower extremity cisneros scale and Duplex Doppler evaluation of the deep venous system from the inguinal ligament through the calf veins. FINDINGS: REGION: Right lower extremity. THROMBI: Negative for DVT. Areas treated with Varithena/microfoam are seen with echogenic thrombus. COMPRESSIBILITY: Noncompressibility corresponding to thrombus FLOW: Absent flow corresponding to thrombus OTHER: Patent varicose vein visualized on the anterior distal thigh 5.7 mm with 1.0s of reflux. Patent varicose visualized posterior knee measures 4.6 mm with 0.9s of reflux. CONCLUSION: Post ablation occlusion of treated varicose veins with multiple residual incompetent varicose veins measuring up to 5.7 mm Dictated by: Artie Lock MD on 03/18/2023 at 09:44 Approved by: Artie Lock MD on 03/18/2023 at 09:45
== END 2023-03-18 08:50 | disposition home or self-care (01) ==
LOC: VC 08:49
PROVIDERS: PCP Radiology Diagnostic Radiology; Visit Provider Radiology Diagnostic Radiology
DX: I80.01 Phlebitis and thrombophlebitis of superficial vessels of right lower extremity (principal)
CPT/HCPCS: 93971; G0463

== ENCOUNTER 2023-03-24 09:18 | Outpatient (OUT) | payer MEDICAID, SELFPAY ==
--- NOTE | 2023-03-24 09:19 | VEIN_ITS ---
[address] [address] Patient Name: AGUILA NIELSEN MRN: [id number] date: 1990 Sex: F Assigned Patient Location: Current Patient Location: Accession/Order Number: [id number] Exam Date: 03/24/2023 09:25 Report Date: 03/24/2023 10:52 At the request of: ANDREW TURNER Procedure: VC INJ Foam Sclerosant WUS INVESTOR RELATIONS ASSOCIATE PROCEDURE: VC INJ Foam Sclerosant WUS INVESTOR RELATIONS ASSOCIATE HISTORY: I83.813 Painful varicose veins of bilat lower extremities Pre-operative Diagnosis: CEAP class C3 venous insufficiency with pain, tenderness, edema and incompetent branch saphenous vein(s), chronic venous insufficiency left leg secondary to venous incompetence Post-operative Diagnosis: CEAP class C3 venous insufficiency with pain, tenderness, edema and incompetent branch saphenous vein(s), chronic venous insufficiency left leg secondary to venous incompetence Procedure Performed: 1. Ultrasound-guided microfoam chemical ablation with Varithenaregistered 2. Intraoperative ultrasound guidance Physician: Claude Rodriguez M.D. Anesthesia: None Indications for Procedure: 32 year old female. Symptoms including lower extremity swelling, pain, dilated bulging veins for many years despite conservative medical therapy including medical compression stockings, exercise and analgesics. Prior procedures include endovenous laser ablation and Microfoam chemical ablation. Multiple incompetent varicosities of the left leg. Duplex scan showed reflux and enlarged diameters up to 8 mm. The patient underwent informed consent including management options where the complications of infection, bleeding, pain, and skin injury were discussed. Particular attention was spent discussing thrombus extension and deep vein thrombosis as well as the possibility of pulmonary embolus and treatment with oral or injectable blood thinners. Procedure: The patient walked to the procedure room. All applicable staff donned appropriate apparel. A procedure timeout was performed to confirm correct patient, correct extremity, correct procedure, and correct room set-up including presence of all applicable supplies, devices, and drugs. A duplex ultrasound, performed by myself confirmed the location and incompetence of branch saphenous varicosities and their course was marked on the skin together with the dilated tributaries. The extent of treatment of the vein and the associated varicosities was determined through ultrasound mapping. The skin was prepped and then punctured with a butterfly needle and advanced under ultrasound guidance. The Varithenaregistered canister was activated and the canister was primed and purged as required in the instructions for use. Varithenaregistered was drawn into a sterile syringe. Varithenaregistered was slowly administered at 0.5-1.0 cc/second with close observation by ultrasound of its course in the vessels. Total volume utilized was: 15 mL (7 mL into a 5 mm varicosity of the proximal lateral lower leg; 8 mL indeterminate 8 mm varicosity medial to the knee). Following administration of Varithenaregistered the leg was elevated and the patient was asked to repeatedly dorsiflex the ankle to limit flow of Varithenaregistered into perforating veins. Once appropriate spasm had been confirmed in the treated veins, the vascular catheter was removed from the leg and light pressure was applied over the puncture site for hemostasis. The common femoral and deep superficial veins were then evaluated for flow and compressibility prior to dressing placement. The lower extremity was kept elevated at 45 degrees above the horizontal and cording material was applied over the saphenous segments and tributaries to allow for eccentric compression over the target vessels including the targeted saphenous vein(s). A multilayer dressing was applied consisting of foam pads, coban and thigh-high 20-30 mm Hg compression elastic support hose were placed on the patient. The leg was lowered only after compression had been applied and the patient was immediately ambulatory. The patient ambulated 10 minutes under supervision and was without apparent concerns at time of release. Post-care instructions include advising patient to keep post-treatment bandages in place and dry for 48 hours, avoid extended periods of inactivity, avoid heavy exercise for one week, wear compression stockings on the treated leg continuously for two weeks, to walk daily for 10 minutes over the next month. The patient was instructed to take an anti-inflammatory medicine as needed and to follow up for color duplex scan of the Saphenous veins, the treated branch saphenous varicosities, the adjacent deep veins, and additional treatment within 7 days. PERSONNEL: Kevon Diaz RN Electronically authenticated by: CLAUDE RODRIGUEZ Date: 03/24/2023 10:52
== END 2023-03-24 09:19 | disposition home or self-care (01) ==
LOC: VC 09:18
PROVIDERS: PCP Radiology Diagnostic Radiology; Visit Provider Radiology Diagnostic Radiology
DX: I83.813 Varicose veins of bilateral lower extremities with pain (principal)
CPT/HCPCS: 36466

== ENCOUNTER 2023-03-30 07:29 | Outpatient (OUT) | payer MEDICAID, SELFPAY ==
--- NOTE | 2023-03-30 | VEIN_ITS ---
Patient: AGUILA NIELSEN Exam Date: 03/30/2023 : 1990 Gender:F Ordering : DR ANDREW TURNER M.D. Admission #: [id number] Family : Order #: [id number] CLICK HERE TO VIEW EXAM RADIOLOGY REPORT PROCEDURE: VC EXT VENOUS LT LIMITED COMPARISON: VC EXT VENOUS LT LIMITED, 02/24/2023. INDICATIONS: Phlebitis and thrombophlebitis of lt lower ext. I80.02 TECHNIQUE: Lower extremity cisneros scale and Duplex Doppler evaluation of the deep venous system from the inguinal ligament through the calf veins. FINDINGS: REGION: Left lower extremity. THROMBI: Negative for DVT. Varithena induced thrombus visualized at prox/lat calf and lateral knee. COMPRESSIBILITY: Non-compressible segments corresponding to thrombus FLOW: Areas of no flow. OTHER: No patent varicose veins remain. CONCLUSION: 1. Successful post ablation occlusion of treated left branch saphenous varicosities. Dictated by: Claude Rodriguez M.D. on 03/30/2023 at 09:29 Approved by: Claude Rodriguez M.D. on 03/30/2023 at 09:34
--- NOTE | 2023-03-30 | VEIN_ITS ---
Patient: AGUILA NIELSEN Exam Date: 03/30/2023 : 1990 Gender:F Ordering : DR ANDREW TURNER M.D. Admission #: [id number] Family : Order #: [id number] CLICK HERE TO VIEW EXAM RADIOLOGY REPORT PROCEDURE: [facility] EST LMTD VEIN CENTER - OFFICE VISIT FOLLOW UP [facility] PROGRESS NOTES: The patient reports improvement in leg symptoms. There has been interval reduction in varicosities. The patient has followed our recommendations to walk 20-30 minutes once or twice per day since the procedure. Physical exam demonstrates decrease in varicosities of the leg. No appreciable remaining varicosities are identified along the left. Review of the ultrasound performed the same day demonstrates occlusive thrombus extending throughout the treated vein(s), see separate report, consistent with a successful ablation. No thrombus extending into or beyond the saphenofemoral junction. The patient expressed a desire to proceed with treatment of remaining varicosities within right leg. The patient was informed that treatment was a process and would require 1-2 procedures/sessions. VEIN/[facility] EST TD IMPRESSION: 1. Successful ablation of the treated left leg branch saphenous vein(s). 2. No remaining treatable branch saphenous varicosities within left leg. 3. Persistent right lower extremity branch saphenous veins and lower extremity symptoms. PLAN: Microfoam chemical ablation of right leg incompetent branch saphenous varicosities. Nurse notes, history and physical were reviewed and confirmed, see attached forms. The nurse was present throughout the physical exam and consultation Dictated by: Claude Rodriguez M.D. on 03/30/2023 at 09:34 Approved by: Claude Rodriguez M.D. on 03/30/2023 at 09:37
== END 2023-03-30 07:30 | disposition home or self-care (01) ==
LOC: VC 07:29
PROVIDERS: PCP Radiology Diagnostic Radiology; Visit Provider Radiology Diagnostic Radiology
DX: I80.02 Phlebitis and thrombophlebitis of superficial vessels of left lower extremity (principal)
CPT/HCPCS: 93971; G0463

== ENCOUNTER 2023-04-07 07:49 | Outpatient (OUT) | payer MEDICAID, SELFPAY ==
--- NOTE | 2023-04-07 07:49 | VEIN_ITS ---
[address] [address] Patient Name: AGUILA NIELSEN MRN: [id number] date: 1990 Sex: F Assigned Patient Location: Current Patient Location: Accession/Order Number: [id number] Exam Date: 04/07/2023 07:55 Report Date: 04/07/2023 08:52 At the request of: ANDREW TURNER Procedure: VC INJ Foam Sclerosant WUS RISK ENGINEER PROCEDURE: VC INJ Foam Sclerosant WUS RISK ENGINEER COMPARISON: None. HISTORY: Pain due to varicose veins of bilateral legs I83.813 Pre-operative Diagnosis: CEAP class C3 venous insufficiency with pain, tenderness, edema and incompetent saphenous and varicose vein(s), chronic venous insufficiency right leg secondary to venous incompetence Post-operative Diagnosis: CEAP class C3 venous insufficiency with pain, tenderness, edema and incompetent saphenous and varicose vein(s), chronic venous insufficiency right leg secondary to venous incompetence Procedure Performed: 1. Ultrasound-guided microfoam chemical ablation with Varithenaregistered 2. Intraoperative ultrasound guidance Anesthesia: None Indications for Procedure: 32-year-old female presents with a long history of lower extremity pain swelling and extensive varicose veins. The patient failed conservative medical therapy including medical compression stockings, exercise and analgesics. Prior procedures include endovenous laser ablation likely from consolidation. Multiple incompetent varicosities of the right leg. Duplex scan showed reflux and enlarged diameters up to 8 mm. The patient underwent informed consent including management options where the complications of infection, bleeding, pain, and skin injury were discussed. Particular attention was spent discussing thrombus extension and deep vein thrombosis as well as the possibility of pulmonary embolus and treatment with oral or injectable blood thinners. Procedure: The patient walked to the procedure room. All applicable staff donned appropriate apparel. A procedure timeout was performed to confirm correct patient, correct extremity, correct procedure, and correct room set-up including presence of all applicable supplies, devices, and drugs. A duplex ultrasound, performed by myself confirmed the location and incompetence of branch saphenous varicosities and their course was marked on the skin together with the dilated tributaries. The extent of treatment of the vein and the associated varicosities was determined through ultrasound mapping. The skin was prepped and then punctured with a butterfly needle and advanced under ultrasound guidance. The Varithenaregistered canister was activated and the canister was primed and purged as required in the instructions for use. Varithenaregistered was drawn into a sterile syringe. Following injection of MA: 6 cc injected into a 4 mm varicose vein distal medial right lower leg 5 cc injected into a 5 mm varicose vein proximal medial right lower leg 5 cc injected into an 8 mm varicose vein distal anterolateral right thigh Varithenaregistered was slowly administered at 0.5-1.0 cc/second with close observation by ultrasound of its course in the vessels. Total volume utilized was: 15 cc. Following administration of Varithenaregistered the leg was elevated and the patient was asked to repeatedly dorsiflex the ankle to limit flow of Varithenaregistered into perforating veins. Once appropriate spasm had been confirmed in the treated veins, the vascular catheter was removed from the leg and light pressure was applied over the puncture site for hemostasis. The common femoral and deep superficial veins were then evaluated for flow and compressibility prior to dressing placement. The lower extremity was kept elevated at 45 degrees above the horizontal and cording material was applied over the saphenous segments and tributaries to allow for eccentric compression over the target vessels including the targeted saphenous vein(s). A multilayer dressing was applied consisting of foam pads, coban and thigh-high 20-30 mm Hg compression elastic support hose were placed on the patient. The leg was lowered only after compression had been applied and the patient was immediately ambulatory. The patient ambulated 10 minutes under supervision and was without apparent concerns at time of release. Post-care instructions include advising patient to keep post-treatment bandages in place and dry for 48 hours, avoid extended periods of inactivity, avoid heavy exercise for one week, wear compression stockings on the treated leg continuously for two weeks, to walk daily for 10 minutes over the next month. The patient was instructed to take an anti-inflammatory medicine as needed and to follow up for color duplex scan of the Saphenous veins, the treated branch saphenous varicosities, the adjacent deep veins, and additional treatment within 7 days. PERSONNEL: Rajani Castellon RN Electronically authenticated by: ANDREW TURNER Date: 04/07/2023 08:52
== END 2023-04-07 07:50 | disposition home or self-care (01) ==
LOC: VC 07:49
PROVIDERS: PCP Radiology Diagnostic Radiology; Visit Provider Radiology Diagnostic Radiology
DX: I83.813 Varicose veins of bilateral lower extremities with pain (principal)
CPT/HCPCS: 36466

== ENCOUNTER 2023-04-13 11:22 | Outpatient (OUT) | payer MEDICAID, SELFPAY ==
--- NOTE | 2023-04-13 | VEIN_ITS ---
Patient Name: AGUILA NIELSEN MR#: [id number] : 1990 Exam Date: 04/13/2023 Ordering Doctor: DR ANDREW TURNER M.D. RADIOLOGY REPORT PROCEDURE: [facility] EST LMTD VEIN CENTER - OFFICE VISIT FOLLOW UP COMPARISON: [facility], 03/30/2023. PROGRESS NOTES: The patient reports improvement in leg symptoms. There has been interval reduction in varicosities. The patient has followed our recommendations to walk 20-30 minutes once or twice per day since the procedure. Physical exam demonstrates decrease in varicosities of the leg. Persistent superficial varicosities are identified along the right. Review of the ultrasound performed the same day demonstrates occlusive thrombus extending throughout the treated vein(s), see separate report, consistent with a successful ablation. No thrombus extending into or beyond the saphenofemoral junction. The patient expressed a desire to proceed with treatment of remaining right leg varicosities.. The patient was informed that treatment was a process and would require approximately 1 more procedures[facility]sessions[facility]: 1. Successful ablation of the treated branch saphenous vein(s). 2. Persistent right leg superficial varicose veins and mild symptoms. PLAN: Microfoam chemical ablation of right leg incompetent and dilated branch saphenous varicosities. Nurse notes, history and physical were reviewed and confirmed, see attached forms. The nurse was present throughout the physical exam and consultation Dictated by: Claude Rodriguez M.D. on 04/13/2023 at 12:47 Approved by: Claude Rodriguez M.D. on 04/13/2023 at 12:52
--- NOTE | 2023-04-13 | VEIN_ITS ---
Patient Name: AGUILA NIELSEN MR#: [id number] : 1990 Exam Date: 04/13/2023 Ordering Doctor: DR ANDREW TURNER M.D. RADIOLOGY REPORT PROCEDURE: VC EXT VENOUS RT LMTD COMPARISON: VC EXT VENOUS RT LMTD, 03/18/2023. INDICATIONS: Phlebitis of superficial vein of rt lower extremity I80.01 TECHNIQUE: Lower extremity cisneros scale and Duplex Doppler evaluation of the deep venous system from the inguinal ligament through the calf veins. FINDINGS: REGION: Right lower extremity. THROMBI: Negative for DVT. Varithena induced thrombus visualized at lateral knee and mid/lat calf. COMPRESSIBILITY: Non-compressible segments corresponding to thrombus FLOW: OTHER: Patent varicose veins remain measuring up to 6.7mm with 0.8s reflux. CONCLUSION: 1. Successful post ablation occlusion of treated branch saphenous varicosities. Dictated by: Claude Rodriguez M.D. on 04/13/2023 at 14:53 Approved by: Claude Rodriguez M.D. on 04/13/2023 at 14:57
== END 2023-04-13 11:23 | disposition home or self-care (01) ==
LOC: VC 11:23
PROVIDERS: PCP Radiology Diagnostic Radiology; Visit Provider Radiology Diagnostic Radiology
DX: I80.01 Phlebitis and thrombophlebitis of superficial vessels of right lower extremity (principal)
CPT/HCPCS: 93971; G0463

== ENCOUNTER 2023-04-22 10:51 | Outpatient (OUT) | payer MEDICAID, SELFPAY ==
--- NOTE | 2023-04-22 10:56 | VEIN_ITS ---
[address] [address] Patient Name: AGUILA NIELSEN MRN: [id number] date: 1990 Sex: F Assigned Patient Location: Current Patient Location: Accession/Order Number: [id number] Exam Date: 04/22/2023 10:56 Report Date: 04/22/2023 12:01 At the request of: ANDREW TURNER Procedure: VC INJ Foam Sclerosant WUS IRRIGATION TAX ASSESSOR COLLECTOR PROCEDURE: VC INJ Foam Sclerosant WUS IRRIGATION TAX ASSESSOR COLLECTOR HISTORY: I83.813 Painful varicose veins of bilat lower extremities Pre-operative Diagnosis: CEAP class C3 venous insufficiency with pain, tenderness, edema and incompetent branch saphenous vein(s), chronic venous insufficiency right leg secondary to venous incompetence Post-operative Diagnosis: CEAP class C3 venous insufficiency with pain, tenderness, edema and incompetent branch saphenous vein(s), chronic venous insufficiency right leg secondary to venous incompetence Procedure Performed: 1. Ultrasound-guided microfoam chemical ablation with Varithenaregistered 2. Intraoperative ultrasound guidance Physician: Claude Rodriguez M.D. Anesthesia: None Indications for Procedure: 32 year old female. Symptoms including [lower extremity pain, swelling, dilated bulging veins, heaviness for many years despite conservative medical therapy including medical compression stockings, exercise and analgesics. Prior procedures include endovenous laser ablation and microfoam chemical ablation. Multiple incompetent varicosities of the right leg. Duplex scan showed reflux and enlarged diameters up to 8 mm. The patient underwent informed consent including management options where the complications of infection, bleeding, pain, and skin injury were discussed. Particular attention was spent discussing thrombus extension and deep vein thrombosis as well as the possibility of pulmonary embolus and treatment with oral or injectable blood thinners. Procedure: The patient walked to the procedure room. All applicable staff donned appropriate apparel. A procedure timeout was performed to confirm correct patient, correct extremity, correct procedure, and correct room set-up including presence of all applicable supplies, devices, and drugs. A duplex ultrasound, performed by myself confirmed the location and incompetence of branch saphenous varicosities and their course was marked on the skin together with the dilated tributaries. The extent of treatment of the vein and the associated varicosities was determined through ultrasound mapping. The skin was prepped and then punctured with a butterfly needle and advanced under ultrasound guidance. The Varithenaregistered canister was activated and the canister was primed and purged as required in the instructions for use. Varithenaregistered was drawn into a sterile syringe. Varithenaregistered was slowly administered at 0.5-1.0 cc/second with close observation by ultrasound of its course in the vessels. Total volume utilized was: 12 mL (9 mL into an 8 mm varicosity of the anterior lateral distal thigh; 3 mL into a 5 mm posterior mid thigh varicosity). Following administration of Varithenaregistered the leg was elevated and the patient was asked to repeatedly dorsiflex the ankle to limit flow of Varithenaregistered into perforating veins. Once appropriate spasm had been confirmed in the treated veins, the vascular catheter was removed from the leg and light pressure was applied over the puncture site for hemostasis. The common femoral and deep superficial veins were then evaluated for flow and compressibility prior to dressing placement. The lower extremity was kept elevated at 45 degrees above the horizontal and cording material was applied over the saphenous segments and tributaries to allow for eccentric compression over the target vessels including the targeted saphenous vein(s). A multilayer dressing was applied consisting of foam pads, coban and thigh-high 20-30 mm Hg compression elastic support hose were placed on the patient. The leg was lowered only after compression had been applied and the patient was immediately ambulatory. The patient ambulated 10 minutes under supervision and was without apparent concerns at time of release. Post-care instructions include advising patient to keep post-treatment bandages in place and dry for 48 hours, avoid extended periods of inactivity, avoid heavy exercise for one week, wear compression stockings on the treated leg continuously for two weeks, to walk daily for 10 minutes over the next month. The patient was instructed to take an anti-inflammatory medicine as needed and to follow up for color duplex scan of the Saphenous veins, the treated branch saphenous varicosities, the adjacent deep veins, and additional treatment within 7 days. PERSONNEL: Rajani Castellon RN Electronically authenticated by: CLAUDE RODRIGUEZ Date: 04/22/2023 12:01
== END 2023-04-22 10:52 | disposition home or self-care (01) ==
LOC: VC 10:51
PROVIDERS: PCP Radiology Diagnostic Radiology; Visit Provider Radiology Diagnostic Radiology
DX: I83.813 Varicose veins of bilateral lower extremities with pain (principal)
CPT/HCPCS: 36466

== ENCOUNTER 2023-04-30 09:20 | Outpatient (OUT) | payer MEDICAID, SELFPAY ==
--- NOTE | 2023-04-30 09:22 | VEIN_ITS ---
Patient Name: AGUILA NIELSEN MR#: [id number] : 1990 Exam Date: 04/30/2023 Ordering Doctor: DR ANDREW TURNER M.D. RADIOLOGY REPORT PROCEDURE: [facility] EST LMTD VEIN CENTER - OFFICE VISIT FOLLOW UP [facility] PROGRESS NOTES: The patient reports improvement in leg symptoms. There has been interval reduction in varicosities. The patient has followed our recommendations to walk 20-30 minutes once or twice per day since the procedure. Physical exam demonstrates decrease in varicosities of the leg. No remaining varicosities are identified along the right leg. Review of the ultrasound performed the same day demonstrates occlusive thrombus extending throughout the treated vein(s), see separate report, consistent with a successful ablation. No thrombus extending into or beyond the saphenofemoral junction. Patient has no remaining superficial varicosities in need of treatment at this time. Patient notes significant improvement and leg symptoms and will follow-up in 1 year as needed. [facility]: 1. Successful ablation of the right leg treated branch saphenous vein(s). 2. No remaining varicosities in need of treatment. PLAN: Follow-up in 1 year or as needed. Nurse notes, history and physical were reviewed and confirmed, see attached forms. The nurse was present throughout the physical exam and consultation Dictated by: Claude Rodriguez M.D. on 04/30/2023 at 10:43 Approved by: Claude Rodriguez M.D. on 04/30/2023 at 10:44
--- NOTE | 2023-04-30 09:22 | VEIN_ITS ---
Patient Name: AGUILA NIELSEN MR#: [id number] : 1990 Exam Date: 04/30/2023 Ordering Doctor: DR ANDREW TURNER M.D. RADIOLOGY REPORT PROCEDURE: VC EXT VENOUS RT LMTD COMPARISON: VC EXT VENOUS RT LMTD, 04/13/2023. INDICATIONS: I80.01 Phlebitis of superficial veins of rt lower extremity TECHNIQUE: Lower extremity cisneros scale and Duplex Doppler evaluation of the deep venous system from the inguinal ligament through the calf veins. FINDINGS: REGION: Right lower extremity. THROMBI: Negative for DVT. Varithena induced thrombus visualized at ant/distal thigh and dist/lat thigh. COMPRESSIBILITY: Non-compressible segments corresponding to thrombus FLOW: Areas of no flow corresponding to thrombus OTHER: No patent varicose veins remain. CONCLUSION: 1. Successful post ablation occlusion of right leg treated branch saphenous varicosities. Dictated by: Claude Rodriguez M.D. on 04/30/2023 at 10:15 Approved by: Claude Rodriguez M.D. on 04/30/2023 at 10:43
== END 2023-04-30 09:21 | disposition home or self-care (01) ==
LOC: VC 09:21
PROVIDERS: PCP Radiology Diagnostic Radiology; Visit Provider Radiology Diagnostic Radiology
DX: I80.01 Phlebitis and thrombophlebitis of superficial vessels of right lower extremity (principal)
CPT/HCPCS: 93971; G0463